=== PATIENT | female | born 1945 ===

== ENCOUNTER 2023-11-27 12:49 | Outpatient (CLI) | payer OTHER | END 2023-11-27 12:51 | disposition home or self-care (01) | LOC: SONOGRAMA 12:49 | PROVIDERS: ATTEND Pathology Anatomic Pathology & Clinical Pathology | DX: D34 Benign neoplasm of thyroid gland (principal); E07.89 Other specified disorders of thyroid; E03.9 Hypothyroidism, unspecified ==